=== PATIENT | male | born 1965 | race Caucasian/White ===

== ENCOUNTER 2020-08-20 05:33 | Emergency (ER) | payer OTHER ==
[2020-08-20 06:18] LABS: HEMOGLOBIN 14.8 gm/dl (14.0-17.5); RED BLOOD COUNT 5.2 M/UL (4.20-5.50); WHITE BLOOD COUNT 11.1 K/UL (4.5-11.0)
[2020-08-20 06:45] LABS: BUN/CREATININE RATIO 18 (0-10)
[2020-08-20] MEDS ORDERED: SYMBICORT 160-1 INHA INH (06:54)
[2020-08-20] MEDS ORDERED: VENTOLIN HFA 66.7 GM INH (06:54)
[2020-08-20] MEDS ORDERED: PREDNISONE20 MG PO (07:03)
== END 2020-08-20 08:19 | disposition home or self-care (01) ==
LOC: ER1 05:33
PROVIDERS: Family Medicine
DX: J44.9 Chronic obstructive pulmonary disease, unspecified (principal); E11.9 Type 2 diabetes mellitus without complications; F17.210 Nicotine dependence, cigarettes, uncomplicated
CPT/HCPCS: 71045; 80053; 82550; 82553; 83605; 83880; 84484; 85025; 93005; 96374; 99285; J2930